=== PATIENT | female | born 1955 | race Caucasian/White ===

== ENCOUNTER 2016-04-22 10:56 | Outpatient (CLI) | payer MEDICARE, OTHER | END 2016-04-22 10:57 | disposition home or self-care (01) | DX: I25.10 Atherosclerotic heart disease of native coronary artery without angina pectoris (principal); D72.829 Elevated white blood cell count, unspecified; E03.9 Hypothyroidism, unspecified; E78.5 Hyperlipidemia, unspecified ==

== ENCOUNTER 2016-04-22 11:02 | Outpatient (CLI) | payer MEDICARE, OTHER | END 2016-04-22 11:03 | disposition home or self-care (01) | DX: Z12.31 Encounter for screening mammogram for malignant neoplasm of breast (principal) ==

== ENCOUNTER 2017-04-25 11:21 | Outpatient (CLI) | payer MEDICARE, OTHER ==
[2017-04-25 11:56] LABS: ALBUMIN 3.7 g/dL (3.2-5.5); ALBUMIN/GLOBULIN RATIO 1.1 (1.0-2.2); ALKALINE PHOSPHATASE 97 IU/L (42-121); ALT ALANINE AMINOTRANSFERASE 30 IU/L (10-60); AST ASPARTATE AMINOTRANSFERASE 23 IU/L (10-42); BILIRUBIN,TOTAL 0.3 mg/dL (0.2-1.0); BUN - BLOOD UREA NITROGEN 12 mg/dL (6-20); CALCIUM 8.3 mg/dL (8.5-10.3); CARBON DIOXIDE - CO2 23 mmol/L (21-32); CHLORIDE 100 mmol/L (101-111); CHOL/HDL RATIO 4.4 (<4.4); CHOLESTEROL 97 mg/dL; CREATININE 0.8 mg/dL (0.4-1.0); GFR - MDRD 73 (>89); GLUCOSE 121 mg/dL (70-100); HDL CHOLESTEROL 22 mg/dL; LDL CHOLESTEROL,CALCULATED 56 mg/dL; LDL/HDL RATIO 2.5 (<4.4); SODIUM 133 mmol/L (135-145); VLDL CHOLESTEROL 19 mg/dL
[2017-04-25 12:00] LABS: BASOPHILS % (AUTO) 0.6 %; EOSINOPHILS # (AUTO) 0.1 10^3/uL (0.0-0.7); EOSINOPHILS % (AUTO) 1.7 %; HGB - HEMOGLOBIN 13.7 g/dL (12.0-16.0); LYMPHOCYTES # (AUTO) 2.5 10^3/uL (1.5-3.5); LYMPHOCYTES % (AUTO) 42.9 %; MEAN CORPUSCULAR HEMOGLOBIN 30.6 pg (27.0-31.0); MEAN CORPUSCULAR HGB CONC 34.4 g/dL (32.0-36.0); MEAN CORPUSCULAR VOLUME 88.9 fL (81.0-99.0); MEAN PLATELET VOLUME 8.5 fL (7.9-10.8); MONOCYTES # (AUTO) 0.5 10^3/uL (0.0-1.0); MONOCYTES % (AUTO) 9.1 %; NEUTROPHILS # (AUTO) 2.6 10^3/uL (1.5-6.6); NEUTROPHILS % (AUTO) 45.7 %; PLT - PLATELET COUNT 183 10^3/uL (130-450); RED BLOOD COUNT 4.47 10^6/uL (4.20-5.40); WHITE BLOOD COUNT 5.8 x10^3/uL (4.8-10.8)
== END 2017-04-25 11:22 | disposition home or self-care (01) ==
LOC: LAB 11:21
PROVIDERS: ATTEND Nurse Practitioner Primary Care
DX: I25.10 Atherosclerotic heart disease of native coronary artery without angina pectoris (principal); E88.81 Metabolic syndrome and other insulin resistance; E03.9 Hypothyroidism, unspecified; E78.5 Hyperlipidemia, unspecified; Z79.899 Other long term (current) drug therapy
CPT/HCPCS: 36415; 80053; 80061; 83721; 84443; 85025

== ENCOUNTER 2017-06-07 08:00 | Outpatient (CLI) | payer MEDICARE | END 2017-06-07 23:59 | disposition home or self-care (01) | LOC: LAB.R 08:00 | PROVIDERS: ATTEND Surgery | DX: R19.5 Other fecal abnormalities (principal) | CPT/HCPCS: 82270 ==

== ENCOUNTER 2017-06-13 07:53 | Day surgery (SDC) | payer MEDICARE ==
[2017-06-13] MEDS ORDERED: LACTATED RINGERS 1,000 ML IV ONE (07:59)
[2017-06-13] MEDS ORDERED: BENZOCAINE/TETRACAINE/BUTAMBEN SPRAY 56 GM TOP ONE (09:29)
[2017-06-13] MEDS ORDERED: KETAMINE 500 MG/10 ML VIAL IVP ONE (09:40)
[2017-06-13] MEDS ORDERED: MIDAZOLAM 2 MG/2 ML VIAL IVP ONE (09:40)
[2017-06-13] MEDS ORDERED: GLYCOPYRROLATE 1 MG/5 ML VIAL IVP ONE (09:40)
[2017-06-13] MEDS ORDERED: PROPOFOL 200 MG/20 ML VIAL IVP ONE (09:40)
[2017-06-13 10:52] VITALS: BP 129/56
== END 2017-06-13 07:54 | disposition home or self-care (01) ==
LOC: SDS 07:53
PROVIDERS: ATTEND Surgery
PROC: 0DBM8ZX Excision of Descending Colon, Via Natural or Artificial Opening Endoscopic, Diagnostic (ICD-10-PCS; 2017-06-13)
PROC: 0DBL8ZX Excision of Transverse Colon, Via Natural or Artificial Opening Endoscopic, Diagnostic (ICD-10-PCS; 2017-06-13)
PROC: 0DBN8ZX Excision of Sigmoid Colon, Via Natural or Artificial Opening Endoscopic, Diagnostic (ICD-10-PCS; 2017-06-13)
PROC: 0DBP8ZX Excision of Rectum, Via Natural or Artificial Opening Endoscopic, Diagnostic (ICD-10-PCS; 2017-06-13)
PROC: 0DB48ZX Excision of Esophagogastric Junction, Via Natural or Artificial Opening Endoscopic, Diagnostic (ICD-10-PCS; principal; 2017-06-13 09:00)
PROC: 0DB78ZX Excision of Stomach, Pylorus, Via Natural or Artificial Opening Endoscopic, Diagnostic (ICD-10-PCS; 2017-06-13 09:00)
DX: R19.5 Other fecal abnormalities (principal); K29.70 Gastritis, unspecified, without bleeding; K22.10 Ulcer of esophagus without bleeding; D12.3 Benign neoplasm of transverse colon; D12.5 Benign neoplasm of sigmoid colon; K62.1 Rectal polyp; I10 Essential (primary) hypertension; I25.2 Old myocardial infarction; Z79.82 Long term (current) use of aspirin; E78.00 Pure hypercholesterolemia, unspecified; F17.210 Nicotine dependence, cigarettes, uncomplicated
CPT/HCPCS: 43239; 45384; A9270; J7120

== ENCOUNTER 2018-04-28 10:56 | Outpatient (CLI) | payer MEDICARE, OTHER ==
[2018-04-28 11:26] LABS: BASOPHILS # (AUTO) 0.1 10^3/uL (0.0-0.1); BASOPHILS % (AUTO) 0.8 %; EOSINOPHILS # (AUTO) 0.2 10^3/uL (0.0-0.7); EOSINOPHILS % (AUTO) 2.2 %; HGB - HEMOGLOBIN 14.4 g/dL (12.0-16.0); LYMPHOCYTES # (AUTO) 3.4 10^3/uL (1.5-3.5); LYMPHOCYTES % (AUTO) 30.1 %; MEAN CORPUSCULAR HEMOGLOBIN 30.3 pg (27.0-31.0); MEAN CORPUSCULAR HGB CONC 33.9 g/dL (32.0-36.0); MEAN CORPUSCULAR VOLUME 89.4 fL (81.0-99.0); MEAN PLATELET VOLUME 7.7 fL (7.9-10.8); MONOCYTES # (AUTO) 0.6 10^3/uL (0.0-1.0); MONOCYTES % (AUTO) 5.5 %; NEUTROPHILS % (AUTO) 61.4 %; PLT - PLATELET COUNT 262 10^3/uL (130-450); RED BLOOD COUNT 4.77 10^6/uL (4.20-5.40); RED CELL DISTRIBUTION WIDTH 14.4 % (12.0-15.0); WHITE BLOOD COUNT 11.4 x10^3/uL (4.8-10.8)
[2018-04-28 11:43] LABS: ALBUMIN 3.9 g/dL (3.2-5.5); ALBUMIN/GLOBULIN RATIO 1.1 (1.0-2.2); ALKALINE PHOSPHATASE 109 IU/L (42-121); ALT ALANINE AMINOTRANSFERASE 26 IU/L (10-60); AST ASPARTATE AMINOTRANSFERASE 17 IU/L (10-42); BILIRUBIN,TOTAL 0.4 mg/dL (0.2-1.0); BUN - BLOOD UREA NITROGEN 18 mg/dL (6-20); CALCIUM 9.1 mg/dL (8.5-10.3); CARBON DIOXIDE - CO2 26 mmol/L (21-32); CHLORIDE 103 mmol/L (101-111); CHOL/HDL RATIO 4.8 (<4.4); CHOLESTEROL 139 mg/dL; CREATININE 0.9 mg/dL (0.4-1.0); GFR - MDRD 63 (>89); GLUCOSE 127 mg/dL (70-100); HDL CHOLESTEROL 29 mg/dL; LDL CHOLESTEROL,CALCULATED 66 mg/dL; LDL/HDL RATIO 2.3 (<4.4); SODIUM 138 mmol/L (135-145); TOTAL PROTEIN 7.3 g/dL (6.7-8.2); VLDL CHOLESTEROL 44 mg/dL
[2018-04-28 11:52] LABS: HB2 TOTAL 15.4 g/dL; HEMOGLOBIN A1C 0.67 g/dL; HEMOGLOBIN A1C % 6.1 % (4.6-6.2)
== END 2018-04-28 10:57 | disposition home or self-care (01) ==
LOC: LAB 10:56
PROVIDERS: ATTEND Nurse Practitioner Primary Care
DX: E88.81 Metabolic syndrome and other insulin resistance (principal); Z79.899 Other long term (current) drug therapy; I25.10 Atherosclerotic heart disease of native coronary artery without angina pectoris; E03.9 Hypothyroidism, unspecified; E78.5 Hyperlipidemia, unspecified
CPT/HCPCS: 36415; 80053; 80061; 83036; 83721; 84443; 85025

== ENCOUNTER 2018-07-07 08:56 | Outpatient (CLI) | payer MEDICARE, OTHER ==
[2018-07-07 09:18] LABS: CALCIUM 8.8 mg/dL (8.5-10.3); CREATININE 0.9 mg/dL (0.4-1.0)
[2018-07-07 09:30] LABS: HB2 TOTAL 15.6 g/dL; HEMOGLOBIN A1C 0.7 g/dL; HEMOGLOBIN A1C % 6.3 % (4.6-6.2)
--- NOTE | 2018-07-07 12:48 | CT Report ---
Reason: PERSONAL HISTORY OF NICOTINE DEPENDENCE Procedure Date: 07/07/2018 Accession Number: [id number] / [id number] Procedure: CT - Low Dose Lung Cancer Screen CPT Code: FULL RESULT: EXAM CT LUNG SCREEN EXAM DATE: 07/07/2018 09:22 AM. HISTORY: 63-year-old patient with [id number] smoking history. Currently smoking: Yes. COMPARISON: None. TECHNIQUE: CT examination of the entire thorax without contrast was performed using low-dose technique. Thin section coronal, axial, sagittal and MIP axial images were obtained. In accordance with CT protocol optimization, one or more of the following dose reduction techniques were utilized for this exam: automated exposure control, adjustment of mA and/or KV based on patient size, or use of iterative reconstructive technique. FINDINGS: Nodules: Right upper lobe: 5 mm semisolid nodule 31/4; 4 mm semisolid nodule 35/4; 4 mm semisolid nodule 45/4; 5 mm semisolid nodule 47/4; 6 mm solid nodule 49/4; 5 mm semisolid nodule 57/4; 5 mm solid nodule anterior and 4 mm semisolid nodule lateral 65/4. Right middle lobe: None. Right lower lobe: 4 mm semisolid nodule 77/4; 5 mm solid nodule 106/4. Left upper lobe: 3 mm semisolid nodule 46/4; 4 mm semisolid nodule anterior and 4 mm semisolid nodule anterolateral 58/4; 5 mm semisolid nodule 80/4. Left lower lobe: 4 mm semisolid nodule 73/4; 4 mm semisolid nodule 79/4. Emphysema: Biapical and upper lung paraseptal emphysema. Pleura: Unremarkable. Aorta: Unremarkable. Mediastinum: Unremarkable. Coronary calcifications: Mild coronary artery calcifications in the right coronary artery. Other pulmonary findings: There is upper lobe predominance of mosaic pattern to the background density with geographic areas of associated tiny cystic airspaces within the parenchyma somewhat resembling fine honeycomb fibrosis. Other extrapulmonary findings: None. IMPRESSION: 1. Lung-RADS ASSESSMENT CATEGORY: 3 - probably benign Probability of malignancy: 1-2% 2. Upper lobe predominance of mosaic pattern and geographic areas of fibrosis resembling fine honeycomb type. Consider correlation with dedicated high-resolution CT. RECOMMENDATION: Recommended follow up based on Lung-RADS guidelines. [facility]IA
--- NOTE | 2018-07-07 17:18 | DEXA Report ---
Reason: POSTMENOPAUSAL Procedure Date: 07/07/2018 Accession Number: [id number] / [id number] Procedure: DEX - Dexa Spine and/or Hip CPT Code: FULL RESULT: EXAM: Dexa Spine and/or Hip DATE: 07/07/2018 10:11 AM CLINICAL HISTORY: POSTMENOPAUSAL TECHNIQUE: Dual energy x-ray absorptiometry (DXA) was performed on a [employer] System. Regions measured are the AP Spine, femoral neck, and if needed forearm. COMPARISON: None. In accordance with the International Society for Clinical Densitometry (ISCD) guidelines, data from previous exams may be reanalyzed using current recommendations and techniques. This is done to allow a more accurate basis for comparison with the current study. FINDINGS: The data for the lumbar spine is as follows: BMD (g/cm/cm) T-SCORE Z-SCORE REGION L1 0.863 -2.2 -1.3 L2 0.900 -2.5 -1.5 L3 0.931 -2.2 -1.3 L4 0.856 -2.9 -1.9 TOTAL 0.887 -2.4 -1.5 NOTE: All evaluable vertebrae are used for classification The data for the hip is as follows: BMD (g/cm/cm) T-SCORE Z-SCORE REGION Neck 1.036 0.0 1.1 TOTAL 1.001 0.0 0.7 NOTE: The femoral neck or total proximal femur, whichever is lowest, is used for classification. IMPRESSION: THE WHO CLASSIFICATION BASED ON THE INTERNATIONAL REFERENCE STANDARD IS OSTEOPENIA. THE FRACTURE RISK IS INCREASED. RECOMMENDATION: Patients with diagnosis of osteoporosis or osteopenia should have regular bone mineral density assessment. For those eligible for Medicare, routine testing is allowed once every 2 years. Testing frequency can be increased for patients who have rapidly progressing disease or for those who are receiving medical therapy to restore bone mass. COMMENT: World Health Organization (WHO) definitions for osteoporosis and osteopenia: NORMAL BMD: T-score at -1.0 or higher, fracture risk is low OSTEOPENIA BMD: T-score between -1.0 and -2.5, fracture risk is increased. OSTEOPOROSIS BMD: T-score at -2.5 or lower, fracture risk is high. National Osteoporosis Foundation recommends: 1. Obtain adequate dietary calcium (at least 1200 mg per day) and vitamin D (400-800 international units per day). 2. Participate, as appropriate, in regular weightbearing and muscle-strengthening exercise. 3. Avoid tobacco use and reduce alcohol and caffeine intake. 4. For more detailed information see the website at www.NOF.org.
[2018-07-08 14:36] LABS: HEPATITIS C ANTIBODY NON-REACTIVE (NON-REACTIVE)
== END 2018-07-07 08:57 | disposition home or self-care (01) ==
LOC: LAB 08:56
PROVIDERS: ATTEND Family Medicine
DX: Z00.00 Encounter for general adult medical examination without abnormal findings (principal); Z12.2 Encounter for screening for malignant neoplasm of respiratory organs; F17.210 Nicotine dependence, cigarettes, uncomplicated; R91.8 Other nonspecific abnormal finding of lung field; M85.88 Other specified disorders of bone density and structure, other site; Z78.0 Asymptomatic menopausal state; E88.81 Metabolic syndrome and other insulin resistance; R73.9 Hyperglycemia, unspecified
CPT/HCPCS: 36415; 77080; 80048; 83036; 86803; G0297

== ENCOUNTER 2018-07-07 09:09 | Outpatient (CLI) | payer MEDICARE, OTHER ==
--- NOTE | 2018-07-07 16:58 | Mammography Report ---
Reason: MAMMOGRAPHIC SCREENING FOR BREAST CANCER Procedure Date: 07/07/2018 Accession Number: [id number] / [id number] Procedure: [facility] - Screening Mammo w/Jalen CPT Code: FULL RESULT: EXAM: Screening Mammo w/Jalen DATE: 07/07/2018 9:59 AM CLINICAL HISTORY: Routine screening. No reported personal or family history of breast cancer. TECHNIQUE: (B) - Bilateral Bilateral CC and MLO views were obtained. COMPARISON: 04/22/2016 through 12/08/2013 PARENCHYMAL PATTERN: (A) - The breasts demonstrate scattered fibroglandular densities bilaterally. FINDINGS: Bilateral breasts: There are no suspicious masses, calcifications, or areas of distortion. IMPRESSION: Negative examination. BI-RADS category1 RECOMMENDATION: (ANNUAL) - Recommend routine annual screening mammography. BI-RADS CATEGORY: (1) - Negative STANDARD QUALIFYING STATEMENTS: 1. This examination was not reviewed with the aid of Computer-Aided Detection (CAD). 2. A negative or benign imaging report should not preclude biopsy if clinically suspicious findings are present. 3. Dense breasts may obscure an underlying neoplasm. 4. This examination was reviewed with the aid of 3D breast imaging (tomosynthesis).
== END 2018-07-07 09:10 | disposition home or self-care (01) ==
LOC: DI 09:09
PROVIDERS: ATTEND Family Medicine
DX: Z12.31 Encounter for screening mammogram for malignant neoplasm of breast (principal)
CPT/HCPCS: 77063; 77067

== ENCOUNTER 2018-07-21 08:46 | Outpatient (CLI) | payer MEDICARE, OTHER ==
--- NOTE | 2018-07-21 09:44 | CT Report ---
Reason: ABNORMAL CHEST CT SCAN Procedure Date: 07/21/2018 Accession Number: [id number] / [id number] Procedure: CT - CHEST WO CPT Code: FULL RESULT: EXAM: CT CHEST EXAM DATE: 07/21/2018 09:02 AM. CLINICAL HISTORY: Abnormal low dose screening CT chest exam. COMPARISONS: CHEST SCREEN LOW DOSE W/O 07/07/2018 9:23 AM. TECHNIQUE: Routine helical CT imaging was performed through the chest. IV contrast: None. Reconstructions: Coronal and sagittal. In accordance with CT protocol optimization, one or more of the following dose reduction techniques were utilized for this exam: automated exposure control, adjustment of mA and/or KV based on patient size, or use of iterative reconstructive technique. FINDINGS: Mild bilaterally symmetric interstitial lung disease primarily involving both upper lung zones. The recently described tiny pulmonary nodules are not redemonstrated. No significant bronchiectasis or pleural thickening. Mediastinum: No mediastinal or hilar mass. Normal cardiac size. There is age-appropriate coronary artery calcification. Bones: Unremarkable. Visualized Abdomen: Unremarkable. Other: None. IMPRESSION: 1. Mild bilaterally symmetric interstitial lung disease primarily involving both upper lung zones. 2. No suspicious mass or adenopathy. RADIA
== END 2018-07-21 08:47 | disposition home or self-care (01) ==
LOC: DI 08:46
PROVIDERS: ATTEND Family Medicine
DX: J84.9 Interstitial pulmonary disease, unspecified (principal)
CPT/HCPCS: 71250

== ENCOUNTER 2019-07-06 11:34 | Outpatient (CLI) | payer MEDICARE, OTHER ==
[2019-07-06 11:59] LABS: CALCIUM 9.3 mg/dL (8.5-10.3); CREATININE 0.8 mg/dL (0.4-1.0)
== END 2019-07-06 11:35 | disposition home or self-care (01) ==
LOC: LAB 11:34
PROVIDERS: ATTEND Nurse Practitioner
DX: R00.2 Palpitations (principal); R94.31 Abnormal electrocardiogram [ECG] [EKG]
CPT/HCPCS: 36415; 80048; 83735

== ENCOUNTER 2019-08-24 08:00 | Outpatient (CLI) | payer MEDICARE, OTHER ==
[2019-08-24 17:50] LABS: BASOPHILS # (AUTO) 0.1 10^3/uL (0.0-0.1); BASOPHILS % (AUTO) 0.5 %; EOSINOPHILS # (AUTO) 0.1 10^3/uL (0.0-0.7); EOSINOPHILS % (AUTO) 0.5 %; HGB - HEMOGLOBIN 14.5 g/dL (12.0-16.0); LYMPHOCYTES # (AUTO) 2.8 10^3/uL (1.5-3.5); LYMPHOCYTES % (AUTO) 28.3 %; MEAN CORPUSCULAR HEMOGLOBIN 30.3 pg (27.0-31.0); MEAN CORPUSCULAR HGB CONC 32.2 g/dL (32.0-36.0); MEAN CORPUSCULAR VOLUME 93.9 fL (81.0-99.0); MEAN PLATELET VOLUME 10.8 fL (7.9-10.8); MONOCYTES # (AUTO) 0.4 10^3/uL (0.0-1.0); MONOCYTES % (AUTO) 4.3 %; NEUTROPHILS # (AUTO) 6.5 10^3/uL (1.5-6.6); PLT - PLATELET COUNT 274 10^3/uL (130-450); RED BLOOD COUNT 4.79 10^6/uL (4.20-5.40); RED CELL DISTRIBUTION WIDTH 14.5 % (12.0-15.0); WHITE BLOOD COUNT 9.8 x10^3/uL (4.8-10.8)
[2019-08-24 18:07] LABS: HB2 TOTAL 14.9 g/dL; HEMOGLOBIN A1C 0.65 g/dL; HEMOGLOBIN A1C % 6.1 % (4.6-6.2)
[2019-08-24 18:12] LABS: ALBUMIN 3.9 g/dL (3.2-5.5); ALBUMIN/GLOBULIN RATIO 1.3 (1.0-2.2); ALKALINE PHOSPHATASE 96 IU/L (42-121); ALT ALANINE AMINOTRANSFERASE 25 IU/L (10-60); AST ASPARTATE AMINOTRANSFERASE 18 IU/L (10-42); BILIRUBIN,TOTAL 0.6 mg/dL (0.2-1.0); BUN - BLOOD UREA NITROGEN 14 mg/dL (6-20); CALCIUM 9.1 mg/dL (8.5-10.3); CARBON DIOXIDE - CO2 26 mmol/L (21-32); CHLORIDE 103 mmol/L (101-111); CHOL/HDL RATIO 3.6 (<4.4); CHOLESTEROL 124 mg/dL; CREATININE 0.8 mg/dL (0.4-1.0); GLUCOSE 107 mg/dL (70-100); HDL CHOLESTEROL 34 mg/dL; LDL CHOLESTEROL,CALCULATED 62 mg/dL; LDL/HDL RATIO 1.8 (<4.4); SODIUM 139 mmol/L (135-145); TOTAL PROTEIN 6.9 g/dL (6.7-8.2); VLDL CHOLESTEROL 28 mg/dL
== END 2019-08-24 23:59 | disposition home or self-care (01) ==
LOC: LAB.WCP 08:00
PROVIDERS: ATTEND Nurse Practitioner
DX: R73.9 Hyperglycemia, unspecified (principal); Z79.899 Other long term (current) drug therapy; I34.0 Nonrheumatic mitral (valve) insufficiency; E78.5 Hyperlipidemia, unspecified; E03.9 Hypothyroidism, unspecified; E88.81 Metabolic syndrome and other insulin resistance
CPT/HCPCS: 36415; 80053; 80061; 83036; 83721; 84443; 85025

== ENCOUNTER 2019-09-30 11:34 | Outpatient (CLI) | payer MEDICARE, OTHER ==
--- NOTE | 2019-09-30 16:45 | CT Report ---
PROCEDURE: CHEST WO INDICATIONS: OTH NONSPECIFIC ABN FINDING OF LUNG FLUID TECHNIQUE: Noncontrast 5 mm thick sections acquired from the pulmonary apices to the posterior costophrenic angl es. 7 mm thick coronal and sagittal MIP reformats were then acquired. For radiation dose reduction, the following was used: automated exposure control, adjustment of mA and/or kV according to patient size. COMPARISON: Chest CT examination dated 07.21.18 FINDINGS: Image quality: Excellent. Lungs and pleura: No acute air space opacities. There is no change in moderate bilateral mid and upp er lung predominant interstitial pulmonary opacity. There multiple small cystic lucencies with bilate ral mid and upper lung predominance. No focal airspace opacity. No pleural effusions or pneumothorax. Central and peripheral airways are patent and normal in caliber. Mediastinum: Heart size is normal. There is calcification of the coronary vasculature. No pericardia l effusion. No mediastinal adenopathy by size criteria. Thoracic aorta and central pulmonary arteri es are normal in size. Esophagus is normal in caliber. No hiatal hernia. Bones and chest wall: No suspicious bony lesions. No vertebral body compression fractures. No axil juwan or supraclavicular adenopathy by size criteria. The thyroid is normal in size. Abdomen: Visualized upper abdominal solid organs and bowel loops appear normal in the absence of con trast. IMPRESSION: 1. No significant change in interstitial lung disease. 2. No acute process. 3. Coronary artery disease. Reviewed by: Watson Chavez MD on 09/30/2019 4:43 PM PDT Approved by: Watson Chavez MD on 09/30/2019 4:43 PM PDT Station ID: [id number]
== END 2019-09-30 11:35 | disposition home or self-care (01) ==
LOC: DI 11:34
PROVIDERS: ATTEND Nurse Practitioner
DX: J84.9 Interstitial pulmonary disease, unspecified (principal); I25.10 Atherosclerotic heart disease of native coronary artery without angina pectoris
CPT/HCPCS: 71250

== ENCOUNTER 2020-02-25 11:35 | Outpatient (CLI) | payer MEDICARE, OTHER ==
--- NOTE | 2020-02-25 12:22 | XRAY Report ---
PROCEDURE: Knee 3 View RT INDICATIONS: KNEE JOINT PAIN, RT TECHNIQUE: 3 views of the right knee(s) were acquired. COMPARISON: None. FINDINGS: Bones: No fractures or dislocations. No suspicious bony lesions. Soft tissues: No joint effusion. No suspicious soft tissue calcifications. IMPRESSION: Normal right knee Reviewed by: Jose M Neville on 02/25/2020 12:21 PM [facility] Approved by: Jose M Neville on 02/25/2020 12:21 PM [facility] Station ID: [id number]
== END 2020-02-25 11:36 | disposition home or self-care (01) ==
LOC: DI 11:35
PROVIDERS: ATTEND Family Medicine
DX: M25.561 Pain in right knee (principal)

== ENCOUNTER 2020-11-09 11:12 | Outpatient (CLI) | payer MEDICARE, OTHER ==
[2020-11-09 11:38] LABS: BASOPHILS % (AUTO) 0.4 %; EOSINOPHILS # (AUTO) 0.2 10^3/uL (0.0-0.7); EOSINOPHILS % (AUTO) 1.6 %; HCT - HEMATOCRIT 42.8 % (37.0-47.0); HGB - HEMOGLOBIN 14.2 g/dL (12.0-16.0); LYMPHOCYTES # (AUTO) 2.7 10^3/uL (1.5-3.5); MEAN CORPUSCULAR HEMOGLOBIN 30.1 pg (27.0-31.0); MEAN CORPUSCULAR HGB CONC 33.2 g/dL (32.0-36.0); MEAN CORPUSCULAR VOLUME 90.7 fL (81.0-99.0); MEAN PLATELET VOLUME 9.5 fL (7.9-10.8); MONOCYTES # (AUTO) 0.6 10^3/uL (0.0-1.0); MONOCYTES % (AUTO) 6.3 %; NEUTROPHILS # (AUTO) 5.9 10^3/uL (1.5-6.6); NEUTROPHILS % (AUTO) 62.3 %; PLT - PLATELET COUNT 262 10^3/uL (130-450); RED BLOOD COUNT 4.72 10^6/uL (4.20-5.40); RED CELL DISTRIBUTION WIDTH 14.1 % (12.0-15.0); WHITE BLOOD COUNT 9.4 x10^3/uL (4.8-10.8)
[2020-11-09 12:04] LABS: ALBUMIN 3.9 g/dL (3.2-5.5); ALBUMIN/GLOBULIN RATIO 1.3 (1.0-2.2); ALKALINE PHOSPHATASE 123 IU/L (42-121); ALT ALANINE AMINOTRANSFERASE 34 IU/L (10-60); AST ASPARTATE AMINOTRANSFERASE 19 IU/L (10-42); BILIRUBIN,TOTAL 0.5 mg/dL (0.2-1.0); BUN - BLOOD UREA NITROGEN 19 mg/dL (6-20); CARBON DIOXIDE - CO2 25 mmol/L (21-32); CHLORIDE 101 mmol/L (101-111); CHOL/HDL RATIO 4.2 (<4.4); CHOLESTEROL 133 mg/dL; CREATININE 0.7 mg/dL (0.4-1.0); GFR - MDRD 84 (>89); GLUCOSE 140 mg/dL (70-100); HDL CHOLESTEROL 32 mg/dL; LDL CHOLESTEROL,CALCULATED 65 mg/dL; POTASSIUM 4.3 mmol/L (3.5-5.0); SODIUM 136 mmol/L (135-145); TRIGLYCERIDES 178 mg/dL; VLDL CHOLESTEROL 36 mg/dL
[2020-11-09 12:14] LABS: THYROID STIMULATING HORMONE 2.74 uIU/mL (0.34-5.60)
[2020-11-09 12:30] LABS: ESTIMATED AVERAGE GLUCOSE 148 mg/dL (70-100); HEMOGLOBIN A1c% 6.8 % (4.27-6.07)
== END 2020-11-09 11:13 | disposition home or self-care (01) ==
LOC: LAB 11:12
PROVIDERS: ATTEND Family Medicine
DX: R73.9 Hyperglycemia, unspecified (principal); Z79.899 Other long term (current) drug therapy
CPT/HCPCS: 36415; 80053; 80061; 83036; 83721; 84443; 85025

== ENCOUNTER 2021-01-11 15:00 | Outpatient (CLI) | payer MEDICARE, OTHER ==
--- NOTE | 2021-01-11 17:09 | DEXA Report ---
PROCEDURE: Dexa Spine and/or Hip INDICATIONS: OSTEOPENIA TECHNIQUE: Dual energy x-ray absorptiometry (DXA) was performed on a [employer] System. Regions measur ed are the AP Spine, femoral neck, and if needed forearm. COMPARISON: 07/07/2018. FINDINGS: Lumbar Spine: Bone Mineral Density 0.945 g/cm/cm,T score -2.0, osteopenia Left Hip: Bone Mineral Density 0.973 g/cm/cm,T score by 0.3, normal Left Femoral Neck: Bone Mineral Density 0.974 g/cm/cm, T score -0.5, normal (T score greater or equal to -1.0: NORMAL) (T score from -1.1 to -2.4: OSTEOPENIA) (T score less than or equal to -2.5 to: OSTEOPOROSIS) Impression: Osteopenia. Bone mineral density has decreased 2.8% in the interval since prior exam obta ined 07/07/2018. Patients with diagnosis of osteoporosis or osteopenia should have regular bone mineral density assess ment. For those eligible for Medicare, routine testing is allowed once every 2 years. Testing frequ ency can be increased for patients who have rapidly progressing disease or for those who are receivin g medical therapy to restore bone mass. Reviewed by: Meghana Mera MD, PhD on 01/11/2021 5:08 PM PDT Approved by: Meghana Mera MD, PhD on 01/11/2021 5:08 PM PDT Station ID: [id number]
== END 2021-01-11 15:01 | disposition home or self-care (01) ==
LOC: DI 15:00
PROVIDERS: ATTEND Family Medicine
DX: M85.88 Other specified disorders of bone density and structure, other site (principal)

== ENCOUNTER 2021-01-11 15:16 | Outpatient (CLI) | payer MEDICARE, OTHER ==
--- NOTE | 2021-01-11 16:59 | CT Report ---
PROCEDURE: Low Dose Lung Cancer Screen INDICATIONS: TOBACCO USE,CIGARETTE SMOKER TECHNIQUE: Noncontrast low-dose images were acquired from the pulmonary apices to the posterior costophrenic ang les. Multiplanar MIP reformats were then acquired. For radiation dose reduction, the following was used: automated exposure control, adjustment of mA and/or kV according to patient size. COMPARISON: CT chest without contrast dated 09/30/2019 no suspicious pulmonary nodules. No pleural fl uid. No airspace consolidation. FINDINGS: Image quality: Excellent. Lungs and pleura: Biapical predominance pulmonary fibrosis with some honeycombing present. There is also likely a degree of centrilobular emphysema. Subtle groundglass opacities suggest an acute inflam matory component. Findings are not significantly changed from the previous study. Mediastinum: Heart size is normal. No pericardial effusion. Mild coronary artery calcifications. N o mediastinal adenopathy by size criteria. Thoracic aorta and central pulmonary arteries are normal in size. Esophagus is normal in caliber. No hiatal hernia. Bones and chest wall: No suspicious bony lesions. No vertebral body compression fractures. No axil juwan or supraclavicular adenopathy by size criteria. Thyroid is poorly visualized, grossly unremarka ble. Abdomen: Visualized upper abdomen solid organs and bowel loops appear normal in the absence of contr ast. IMPRESSION: 1. LungRads category 1: Negative. No nodules and/or definitely benign nodules. 2. Annual low-dose noncontrast CT of the chest is recommended for lung cancer screening. 3. Clinically significant or potentially clinically significant findings (nonlung cancer): Pulmonary interstitial fibrosis, probable centrilobular emphysema, coronary artery disease. CLINICAL RECOMMENDATION STATEMENTS: In patients <35 years with an ITN detected on CT, MRI, or extrathyroidal ultrasound, the Committee re commends further evaluation with dedicated thyroid ultrasound if the nodule is "e1 cm and has no susp icious imaging features, and if the patient has normal life expectancy. In patients "e35 years with an ITN detected on CT, MRI, or extrathyroidal ultrasound, the Committee r ecommends further evaluation with dedicated thyroid ultrasound if the nodule is "e1.5 cm and has no s uspicious imaging features, and if the patient has normal life expectancy. (ACR, 2014) Reviewed by: Alex Pierce MD on 01/11/2021 4:58 PM PDT Approved by: Alex Pierce MD on 01/11/2021 4:58 PM PDT Station ID: [id number]
== END 2021-01-11 15:17 | disposition home or self-care (01) ==
LOC: DI 15:16
PROVIDERS: ATTEND Family Medicine
DX: Z12.2 Encounter for screening for malignant neoplasm of respiratory organs (principal); F17.210 Nicotine dependence, cigarettes, uncomplicated; J84.10 Pulmonary fibrosis, unspecified; I25.10 Atherosclerotic heart disease of native coronary artery without angina pectoris; M85.88 Other specified disorders of bone density and structure, other site

== ENCOUNTER 2021-05-30 14:13 | Outpatient (CLI) | payer MEDICARE, OTHER ==
[2021-05-30 14:44] LABS: BASOPHILS % (AUTO) 0.3 %; EOSINOPHILS # (AUTO) 0.1 10^3/uL (0.0-0.7); HCT - HEMATOCRIT 43.9 % (37.0-47.0); HGB - HEMOGLOBIN 14.3 g/dL (12.0-16.0); LYMPHOCYTES # (AUTO) 2.5 10^3/uL (1.5-3.5); LYMPHOCYTES % (AUTO) 26.2 %; MEAN CORPUSCULAR HEMOGLOBIN 29.5 pg (27.0-31.0); MEAN CORPUSCULAR HGB CONC 32.6 g/dL (32.0-36.0); MEAN CORPUSCULAR VOLUME 90.5 fL (81.0-99.0); MEAN PLATELET VOLUME 9.6 fL (7.9-10.8); MONOCYTES # (AUTO) 0.6 10^3/uL (0.0-1.0); NEUTROPHILS # (AUTO) 6.4 10^3/uL (1.5-6.6); NEUTROPHILS % (AUTO) 66.1 %; PLT - PLATELET COUNT 272 10^3/uL (130-450); RED BLOOD COUNT 4.85 10^6/uL (4.20-5.40); RED CELL DISTRIBUTION WIDTH 13.9 % (12.0-15.0); WHITE BLOOD COUNT 9.7 x10^3/uL (4.8-10.8)
[2021-05-30 15:10] LABS: ALBUMIN 4.1 g/dL (3.2-5.5); ALBUMIN/GLOBULIN RATIO 1.4 (1.0-2.2); ALKALINE PHOSPHATASE 107 IU/L (42-121); ALT ALANINE AMINOTRANSFERASE 31 IU/L (10-60); AST ASPARTATE AMINOTRANSFERASE 20 IU/L (10-42); BILIRUBIN,TOTAL 0.7 mg/dL (0.2-1.0); BUN - BLOOD UREA NITROGEN 15 mg/dL (6-20); CALCIUM 9.1 mg/dL (8.5-10.3); CARBON DIOXIDE - CO2 26 mmol/L (21-32); CHLORIDE 100 mmol/L (101-111); CHOL/HDL RATIO 4.1 (<4.4); CHOLESTEROL 127 mg/dL; CREATININE 0.9 mg/dL (0.4-1.0); GFR - MDRD 63 (>89); GLUCOSE 125 mg/dL (70-100); HDL CHOLESTEROL 31 mg/dL; LDL CHOLESTEROL,CALCULATED 63 mg/dL; POTASSIUM 4.4 mmol/L (3.5-5.0); SODIUM 136 mmol/L (135-145); TOTAL PROTEIN 7.1 g/dL (6.7-8.2); TRIGLYCERIDES 165 mg/dL; VLDL CHOLESTEROL 33 mg/dL
[2021-05-30 20:56] LABS: ESTIMATED AVERAGE GLUCOSE 148 mg/dL (70-100); HEMOGLOBIN A1c% 6.8 % (4.27-6.07)
== END 2021-05-30 14:14 | disposition home or self-care (01) ==
LOC: LAB 14:13
PROVIDERS: ATTEND Family Medicine
DX: E11.9 Type 2 diabetes mellitus without complications (principal)
CPT/HCPCS: 36415; 80053; 80061; 83036; 83721; 85025

== ENCOUNTER 2021-06-12 07:57 | Day surgery (SDC) | payer MEDICARE, OTHER ==
[2021-06-12] MEDS ORDERED: LACTATED RINGERS 1,000 ML IV ONE (08:20)
--- NOTE | 2021-06-12 09:06 | ANESTHESIA ---
Pre-Anesthesia VS, & Labs - Diagnosis screening - Procedure colonoscopy Vital Signs: Temp Pulse Resp BP Pulse Ox 36.2 C L 86 12 137/91 H 95 06/12/21 08:20 06/12/21 08:20 06/12/21 08:20 06/12/21 08:20 06/12/21 08:20 Height: 5 ft 6 in Weight (kg): 81.5 kg Body Mass Index: 29.0 BMI Classification: Overweight - NPO >8 hours - Is Patient ?: No - Lab Results Current Lab Results: Laboratory Tests 06/12/21 08:34: POC Whole Bld Glucose 128 H Home Medications and Allergies Home Medications: Ambulatory Orders Aspirin [Aspirin EC] 81 mg PO DAILY 06/05/21 Melatonin/Pyridoxine [Melatonin 5 mg Tablet] 1 each PO QPM PRN 06/05/21 Levothyroxine [Synthroid] 100 mcg PO QDAC 04/06/13 Atorvastatin Calcium 80 mg PO DAILY 04/29/13 Cholecalciferol (Vitamin D3) [Vitamin D3] 5,000 unit PO DAILY 12/07/20 Lysine HCl [l-Lysine] 2,000 mg PO QPM 12/07/20 Metoprolol Succinate [Toprol Xl] 12.5 mg PO DAILY 12/07/20 Aspirin [Aspirin EC] 81 mg PO DAILY 06/05/21 Melatonin/Pyridoxine [Melatonin 5 mg Tablet] 1 each PO QPM PRN 06/05/21 Allergies/Adverse Reactions: Allergies Allergy/AdvReac Type Severity Reaction Status Date / Time oxycodone HCl * Allergy Severe Unknown Verified 06/09/14 19:44 [From Percocet] oxycodone terephthalate * Allergy Severe Unknown Verified 06/09/14 19:44 [From Percodan] acetaminophen Allergy Nausea Verified 06/13/17 08:09 [From Darvocet-N] amoxicillin Allergy Rash Verified 12/07/20 10:42 clarithromycin Allergy Rash Verified 12/07/20 10:42 clopidogrel [From Plavix] Allergy Unknown Verified 12/07/20 10:42 iodine Allergy Hives Verified 06/09/14 19:44 propoxyphene Allergy Nausea Verified 06/13/17 08:09 [From Darvocet-N] Sulfa (Sulfonamide Allergy Unknown Verified 06/09/14 19:44 Antibiotics) tramadol Allergy Nausea Verified 06/13/17 08:09 adhesive tape AdvReac Rash Verified 12/07/20 10:42 iv contrast Allergy Unknown Uncoded 12/07/20 10:42 Anes History & Medical History - Medical History Cardiovascular: reports: Hypertension, High cholesterol, Coronary artery disease, MS, Arrhythmia Pulmonary: reports: Emphysema Gastrointestinal: reports: GERD, Colon polyps Urinary: reports: None Musculoskeletal: reports: Osteoarthritis Endocrine/Autoimmune: reports: Type 2 diabetes, HyPOthyroidism Skin: reports: Eczema Smoking Status: Current every day smoker - Surgical History General: reports: Appendectomy, Colonoscopy, EGD Eyes Ears Nose Throat (EENT): reports: Tonsil/Adenoidectomy Cardiothoracic: reports: Coronary stent Gynecologic: reports: Hysterectomy, Oophrectomy Orthopedic: reports: Other Exam General: Alert, Oriented x3, Cooperative Dental: WNL Mouth Openin Fingerbreadth Neck Mobility: Normal Mallampati classification: II Thyromental Distance: 4-6 cm Respiratory: Rales Cardiovascular: Regular rate Abdomen: Normal bowel sounds Plan Anesthesia Type: Total IV Consent for Procedure(s) Verified and Reviewed: Yes Code Status: Attempt Resuscitation ASA classification: 3-Severe systemic disease Is this case an emergency?: No
[2021-06-12] MEDS ORDERED: PROPOFOL 500 MG/50 ML 500 MG/50 ML VIAL ONE (09:37)
[2021-06-12] MEDS ORDERED: LACTATED RINGERS 400 ML IV ONE (10:37)
[2021-06-12 10:52] VITALS: BP 104/43
== END 2021-06-12 07:58 | disposition home or self-care (01) ==
LOC: SDS 07:57
PROVIDERS: ATTEND Surgery
PROC: 0DBN8ZZ Excision of Sigmoid Colon, Via Natural or Artificial Opening Endoscopic (ICD-10-PCS; 2021-06-12)
PROC: 0DBH8ZZ Excision of Cecum, Via Natural or Artificial Opening Endoscopic (ICD-10-PCS; principal; 2021-06-12 09:30)
DX: Z12.11 Encounter for screening for malignant neoplasm of colon (principal); D12.0 Benign neoplasm of cecum; K63.5 Polyp of colon; K57.30 Diverticulosis of large intestine without perforation or abscess without bleeding; K64.8 Other hemorrhoids; F17.210 Nicotine dependence, cigarettes, uncomplicated; E11.9 Type 2 diabetes mellitus without complications; J43.9 Emphysema, unspecified; I34.0 Nonrheumatic mitral (valve) insufficiency; F41.9 Anxiety disorder, unspecified
CPT/HCPCS: 45380; J7120

== ENCOUNTER → 2022-03-20 | Outpatient (CLI) | payer MEDICARE, OTHER | END | disposition short-term general hospital (02) | LOC: EMS 20:52 | DX: R06.02 Shortness of breath (principal); R07.89 Other chest pain | CPT/HCPCS: A0425; A0427 ==

== ENCOUNTER 2022-05-09 15:10 | Outpatient (CLI) | payer MEDICARE, OTHER ==
[2022-05-09 19:05] LABS: BASOPHILS # (AUTO) 0.1 10^3/uL (0.0-0.1); BASOPHILS % (AUTO) 0.8 %; EOSINOPHILS # (AUTO) 0.2 10^3/uL (0.0-0.7); EOSINOPHILS % (AUTO) 2.1 %; HCT - HEMATOCRIT 46.6 % (37.0-47.0); HGB - HEMOGLOBIN 14.6 g/dL (12.0-16.0); LYMPHOCYTES # (AUTO) 3.1 10^3/uL (1.5-3.5); LYMPHOCYTES % (AUTO) 31.4 %; MEAN CORPUSCULAR HEMOGLOBIN 29.4 pg (27.0-31.0); MEAN CORPUSCULAR HGB CONC 31.3 g/dL (32.0-36.0); MEAN CORPUSCULAR VOLUME 93.8 fL (81.0-99.0); MONOCYTES # (AUTO) 0.6 10^3/uL (0.0-1.0); MONOCYTES % (AUTO) 6.5 %; NEUTROPHILS # (AUTO) 5.8 10^3/uL (1.5-6.6); NEUTROPHILS % (AUTO) 58.8 %; PLT - PLATELET COUNT 296 10^3/uL (130-450); RED BLOOD COUNT 4.97 10^6/uL (4.20-5.40); RED CELL DISTRIBUTION WIDTH 13.9 % (12.0-15.0); WHITE BLOOD COUNT 9.9 x10^3/uL (4.8-10.8)
[2022-05-09 19:16] LABS: ALBUMIN 3.9 g/dL (3.2-5.5); ALBUMIN/GLOBULIN RATIO 1.2 (1.0-2.2); ALKALINE PHOSPHATASE 110 IU/L (42-121); ALT ALANINE AMINOTRANSFERASE 30 IU/L (10-60); AST ASPARTATE AMINOTRANSFERASE 16 IU/L (10-42); BILIRUBIN,TOTAL 0.6 mg/dL (0.2-1.0); BUN - BLOOD UREA NITROGEN 19 mg/dL (6-20); CALCIUM 9.2 mg/dL (8.5-10.3); CARBON DIOXIDE - CO2 26 mmol/L (21-32); CHLORIDE 103 mmol/L (101-111); CHOL/HDL RATIO 4.6 (<4.4); CHOLESTEROL 155 mg/dL; CREATININE 0.9 mg/dL (0.4-1.0); GFR - MDRD 62 (>89); GLUCOSE 144 mg/dL (70-100); HDL CHOLESTEROL 34 mg/dL; LDL CHOLESTEROL,CALCULATED 73 mg/dL; LDL/HDL RATIO 2.1 (<4.4); POTASSIUM 4.7 mmol/L (3.5-5.0); SODIUM 138 mmol/L (135-145); TOTAL PROTEIN 7.2 g/dL (6.7-8.2); TRIGLYCERIDES 242 mg/dL; VLDL CHOLESTEROL 48 mg/dL
[2022-05-09 19:31] LABS: THYROID STIMULATING HORMONE 2.72 uIU/mL (0.34-5.60)
[2022-05-09 20:28] LABS: ESTIMATED AVERAGE GLUCOSE 160 mg/dL (70-100); HEMOGLOBIN A1c% 7.2 % (4.27-6.07)
== END 2022-05-09 15:11 | disposition home or self-care (01) ==
LOC: LAB.N 15:10
PROVIDERS: ATTEND Nurse Practitioner Family
DX: E11.9 Type 2 diabetes mellitus without complications (principal); E78.5 Hyperlipidemia, unspecified; E88.81 Metabolic syndrome and other insulin resistance; E03.9 Hypothyroidism, unspecified
CPT/HCPCS: 36415; 80053; 80061; 83036; 83721; 84443; 85025

== ENCOUNTER 2023-01-22 14:12 | Outpatient (CLI) | payer MEDICARE, OTHER | END 2023-01-22 14:13 | disposition critical access hospital (66) | LOC: EMS 14:12 | DX: M54.50 Low back pain, unspecified (principal); X50.0XXA Overexertion from strenuous movement or load, initial encounter; Y93.E9 Activity, other interior property and clothing maintenance; Y92.003 Bedroom of unspecified non-institutional (private) residence as the place of occurrence of the external cause | CPT/HCPCS: A0425; A0429 ==

== ENCOUNTER 2023-01-22 14:27 | Emergency (ER) | payer MEDICARE, OTHER ==
[2023-01-22] MEDS ORDERED: MORPHINE 2 MG/ML CARPUJECT IVP STA (15:38)
[2023-01-22] MEDS ORDERED: ONDANSETRON 4 MG/2 ML VIAL IVP STA ×2 (15:38→18:02)
[2023-01-22] MEDS ORDERED: LIDOCAINE PATCH 5% TOP STA (15:39)
--- NOTE | 2023-01-22 16:07 | ED Physician Documentation ---
PD HPI BACK PAIN - Stated complaint Stated Complaint: BACK PX - Chief complaint Chief Complaint: Back Pain - History obtained from History obtained from: Patient - Additional information Additional information: Patient is a 67-year-old female presenting for evaluation of low back pain that has been present for the past 2 weeks. Patient states that she was doing housework when her pain started. She has been using ibuprofen with some improvement and yesterday was feeling rather good until she reached for a roasting zheng and suddenly the pain worsened. She also reports having left lower quadrant abdominal pain for the past 4 days which she believes is unrelated. She has associated nausea but no vomiting. Denies diarrhea. Does not take a blood thinner. Has tried ibuprofen this morning without any improvement. No recent falls. Review of Systems Constitutional: denies: Fever Cardiac: denies: Chest pain / pressure Respiratory: denies: Dyspnea GI: reports: Abdominal Pain, Nausea. denies: Vomiting, Diarrhea : denies: Dysuria Musculoskeletal: reports: Back pain PD PAST MEDICAL HISTORY - Past Medical History Cardiovascular: Hypertension, High cholesterol, Coronary artery disease, [place], Arrhythmia Respiratory: Emphysema Endocrine/Autoimmune: Type 2 diabetes, HyPOthyroidism GI: GERD, Colon polyps : None HEENT: Chronic vision loss, Other Psych: None Musculoskeletal: Osteoarthritis Derm: Eczema - Past Surgical History Past Surgical History: Yes General: Appendectomy, Colonoscopy, EGD Ortho: Other /[employer]: Hysterectomy, Oophrectomy Cardiovascular: Coronary stent HEENT: Tonsil/Adenoidectomy - Present Medications Home Medications: Ambulatory Orders Medication Instructions Recorded Confirmed Levothyroxine [Synthroid] 100 mcg PO QDAC 04/06/13 06/05/21 Atorvastatin Calcium 80 mg PO DAILY 04/29/13 06/05/21 Cholecalciferol (Vitamin D3) 5,000 unit PO DAILY 12/07/20 06/05/21 [Vitamin D3] Lysine HCl [l-Lysine] 2,000 mg PO QPM 12/07/20 06/05/21 Metoprolol Succinate [Toprol Xl] 12.5 mg PO DAILY 12/07/20 06/12/21 Aspirin [Aspirin EC] 81 mg PO DAILY 06/05/21 06/05/21 Melatonin/Pyridoxine [Melatonin 5 1 each PO QPM PRN 06/05/21 06/05/21 mg Tablet] Cyclobenzaprine [Flexeril] 10 mg PO TID PRN #20 tablet 10/18/23 Ibuprofen [Motrin] 1 tablet PO Q8H PRN #20 tablet 01/22/23 Lidocaine Patch 5% [Lidoderm Patch] 1 patch TOP DAILY PRN #10 patch 01/22/23 Ondansetron Odt [Zofran] 4 mg TL Q6H PRN #10 tablet 01/22/23 - Allergies Allergies/Adverse Reactions: Allergies Allergy/AdvReac Type Severity Reaction Status Date / Time oxycodone HCl * Allergy Severe Unknown Verified 06/09/14 19:44 [From Percocet] oxycodone terephthalate * Allergy Severe Unknown Verified 06/09/14 19:44 [From Percodan] acetaminophen Allergy Nausea Verified 06/13/17 08:09 [From Darvocet-N] amoxicillin Allergy Rash Verified 12/07/20 10:42 clarithromycin Allergy Rash Verified 12/07/20 10:42 clopidogrel [From Plavix] Allergy Unknown Verified 12/07/20 10:42 iodine Allergy Hives Verified 06/09/14 19:44 propoxyphene Allergy Nausea Verified 06/13/17 08:09 [From Darvocet-N] Sulfa (Sulfonamide Allergy Unknown Verified 06/09/14 19:44 Antibiotics) tramadol Allergy Nausea Verified 06/13/17 08:09 adhesive tape AdvReac Rash Verified 12/07/20 10:42 iv contrast Allergy Unknown Uncoded 12/07/20 10:42 - Social History Does the pt smoke?: No Smoking Status: Current every day smoker Does the pt drink ETOH?: Yes Does the pt have substance abuse?: No - Immunizations Immunizations are current?: Yes - POLST Patient has POLST: No PD ED PE NORMAL - General General: Alert and oriented X 3, No acute distress, Well developed/nourished - HEENT HEENT: Atraumatic, Moist mucous membranes, Pharynx benign - Neck Neck: Supple, no meningeal sign - Cardiac Cardiac: RRR, No murmur - Respiratory Respiratory: No respiratory distress, Clear bilaterally - Abdomen Abdomen: Normal bowel sounds, Soft, Non distended, Other (Left lower quadrant tenderness to palpation) - Back Back: Other (Low lumbar tenderness and left flank tenderness) - Derm Derm: Warm and dry - Neuro Neuro: Normal speech Results - Vitals Vitals: Vital Signs - 24 hr 01/22/23 01/22/23 14:28 18:27 Temperature 36.2 C L Heart Rate 77 66 Respiratory 20 12 Rate Blood Pressure 115/53 L 155/63 H O2 Saturation 97 96 Oxygen O2 Source Room air - Labs Labs: Laboratory Tests 01/22/23 01/22/23 01/22/23 15:53 15:53 16:48 WBC 10.0 RBC 5.32 Hgb 15.3 Hct 47.4 H MCV 89.1 MCH 28.8 MCHC 32.3 RDW 13.8 Plt Count 249 MPV 10.3 Neut # (Auto) 6.9 H Lymph # (Auto) 2.4 Bowie # (Auto) 0.5 Eos # (Auto) 0.1 Baso # (Auto) 0.1 Absolute Nucleated RBC 0.00 Nucleated RBC % 0.0 Sodium 140 Potassium 4.3 Chloride 105 Carbon Dioxide 25 Anion Gap 10.0 BUN 21 H Creatinine 0.8 Estimated GFR (MDRD) 72 L Glucose 141 H Calcium 9.6 Total Bilirubin 0.5 AST 18 ALT 34 Alkaline Phosphatase 125 H Total Protein 7.0 Albumin 4.5 Globulin 2.5 Albumin/Globulin Ratio 1.8 Lipase 46 Urine Color YELLOW Urine Clarity CLEAR Urine pH 5.5 Ur Specific [place] 1.025 Urine Protein NEGATIVE Urine Glucose (UA) >=1000 H Urine Ketones TRACE Urine Occult Blood NEGATIVE Urine Nitrite NEGATIVE Urine Bilirubin NEGATIVE Urine Urobilinogen 0.2 (NORMAL) Ur Leukocyte Esterase NEGATIVE Ur Microscopic Review NOT INDICATED Urine Culture Comments NOT INDICATED PD Medical Decision Making - ED course Complexity details: reviewed results, re-evaluated patient, d/w patient, d/w family (sister) ED course: Patient is a 67-year-old female presenting for evaluation of left-sided back pain after doing housework a few weeks ago which was getting better up until yesterday when she reached for roasting zheng. She also reports having left lower quadrant pain for the last several days. No vomiting or diarrhea. No follow-up red flag signs or symptoms in regards to her back pain. No bowel or bladder incontinence or saddle anesthesia, no IV drug use, no blood thinner use. Labs including CBC, chemistries and urinalysis were obtained and reviewed and without significant findings. CT of the abdomen and pelvis was obtained and reviewed with no significant abnormalities. Pt received IV morphine with little relief. Also received IV dilaudid which helped pain but pt then also developed itchiness and feeling warm. Says she has felt this way with other meds before. No wheezing, SOA, hives. Given IV benadryl. Pt feeling drowsy with medications and nauseous. Additionally IV fluids and zofran ordered. Plan for discharge once feeling improved. Will hold on any further narcotics as patient appears to be quite sensitive to these medications. Pt in agreement for trial of lidocaine patches, ibuprofen and muscle relaxers for symptoms. Counseled on need for follow up and concerning symptoms to return for. Departure - Departure Disposition: Home, Self Care Clinical Impression: Lumbar strain, Left lower quadrant abdominal pain Condition: Stable Instructions: ED Abdominal Pain Female Non-Specific Abdominal Pain, ED Low Back Pain Injury Prescriptions: Cyclobenzaprine [Flexeril] 10 mg PO TID PRN #20 tablet PRN Reason: Spasms Lidocaine Patch 5% [Lidoderm Patch] 1 patch TOP DAILY PRN #10 patch PRN Reason: pain Ibuprofen [Motrin] 1 tablet PO Q8H PRN #20 tablet PRN Reason: PAIN &/OR FEVER Ondansetron Odt [Zofran] 4 mg TL Q6H PRN #10 tablet PRN Reason: Nausea / Vomiting Comments: You were evaluated for low back pain as well as abdominal pain. Your labs are reassuring and your urine shows no infection. Your CT scan does not reveal a cause for the pain. I have sent prescriptions to [facility] to help you with your symptoms including lidocaine patches and a muscle relaxer. Please use caution with any medications as you do have multiple allergies and sensitivities. I would recommend close follow-up with your primary care doctor. Return to the ER with any worsening symptoms. Discharge Date/Time: 01/22/23 19:55
[2023-01-22 16:11] LABS: BASOPHILS # (AUTO) 0.1 10^3/uL (0.0-0.1); BASOPHILS % (AUTO) 0.5 %; EOSINOPHILS # (AUTO) 0.1 10^3/uL (0.0-0.7); EOSINOPHILS % (AUTO) 0.7 %; HCT - HEMATOCRIT 47.4 % (37.0-47.0); HGB - HEMOGLOBIN 15.3 g/dL (12.0-16.0); LYMPHOCYTES # (AUTO) 2.4 10^3/uL (1.5-3.5); LYMPHOCYTES % (AUTO) 24.2 %; MEAN CORPUSCULAR HEMOGLOBIN 28.8 pg (27.0-31.0); MEAN CORPUSCULAR HGB CONC 32.3 g/dL (32.0-36.0); MEAN CORPUSCULAR VOLUME 89.1 fL (81.0-99.0); MEAN PLATELET VOLUME 10.3 fL (7.9-10.8); MONOCYTES # (AUTO) 0.5 10^3/uL (0.0-1.0); MONOCYTES % (AUTO) 4.7 %; NEUTROPHILS # (AUTO) 6.9 10^3/uL (1.5-6.6); NEUTROPHILS % (AUTO) 69.5 %; PLT - PLATELET COUNT 249 10^3/uL (130-450); RED BLOOD COUNT 5.32 10^6/uL (4.20-5.40); RED CELL DISTRIBUTION WIDTH 13.8 % (12.0-15.0)
[2023-01-22] MEDS ORDERED: HYDROmorphone 1 MG/ML CARPUJECT IVP STA (16:38)
[2023-01-22 16:45] LABS: ALBUMIN 4.5 g/dL (3.2-5.5); ALBUMIN/GLOBULIN RATIO 1.8 (1.0-2.2); BILIRUBIN,TOTAL 0.5 mg/dL (0.2-1.0); CALCIUM 9.6 mg/dL (8.5-10.3); CREATININE 0.8 mg/dL (0.6-1.3); POTASSIUM 4.3 mmol/L (3.5-4.5)
[2023-01-22 16:57] LABS: BILIRUBIN,URINE NEGATIVE (NEGATIVE); GLUCOSE, URINE (UA) >=1000 mg/dL (NEGATIVE); KETONES,URINE (UA) TRACE mg/dL (NEGATIVE); LEUKOCYTE ESTERASE, URINE NEGATIVE (NEGATIVE); NITRITE,URINE NEGATIVE (NEGATIVE); OCCULT BLOOD,URINE NEGATIVE (NEGATIVE); PH,URINE 5.5 PH (5.0-7.5); PROTEIN,URINE NEGATIVE (NEGATIVE); UROBILINOGEN,URINE 0.2 (NORMAL) E.U./dL (NORMAL)
[2023-01-22 16:58] LABS: CLARITY,URINE CLEAR (CLEAR)
[2023-01-22] MEDS ORDERED: diphenhydrAMINE INJ 50 MG/ML VIAL IVP STA (17:33)
--- NOTE | 2023-01-22 17:45 | CT Report ---
PROCEDURE: ABDOMEN/PELVIS WO INDICATIONS: LLQ tenderness TECHNIQUE: A CT scan of the abdomen and pelvis was performed without the use of intravenous contrast. Images we re recorded and evaluated at appropriate window settings. Reformats: coronal and sagittal. For radiat ion dose reduction, the following was used: automated exposure control, adjustment of mA and/or kV ac cording to patient size. COMPARISON: None. FINDINGS: Image quality: Excellent. Lung bases and heart: Coronary artery calcifications. No pleural effusion. Liver: Hepatic steatosis. Gallbladder and biliary tree: Gallbladder is within normal limits in size. Possible layering sludge. No biliary ductal dilatation. Spleen: No splenomegaly. Pancreas: No pancreatic ductal dilation. Adrenals: No adrenal nodule. Kidneys and ureters: No hydronephrosis. No kidney stones. Bowel and peritoneum: No bowel distension. No pathologic free fluid. A few colonic diverticuli. The a ppendix is not identified. Lymph nodes: No central or retroperitoneal adenopathy. Vessels: No infrarenal aortic aneurysm. Calcified atherosclerotic plaque. PELVIS Reproductive organs: Uterus is absent. Bladder: Compressed. No stone. Pelvic lymph nodes: No pelvic adenopathy by size criteria. Bones: No aggressive osseous abnormality. Other: No significant ventral or inguinal hernia. IMPRESSION: 1. No kidney stones. No hydronephrosis. 2. No diverticulitis. No free fluid. 3. Hepatic steatosis. Reviewed by: Curly Hidalgo MD on 01/22/2023 5:44 PM PDT Approved by: Curly Hidalgo MD on 01/22/2023 5:44 PM PDT Station ID: [id number]
[2023-01-22] MEDS ORDERED: SODIUM CHLORIDE 0.9% 1,000 ML IV STA (18:02)
[2023-01-22 18:31] VITALS: BP 155/63; O2SAT 96
[2023-01-22] MEDS ORDERED: METOCLOPRAMIDE 10 MG/2 ML VIAL IVP STA (18:42)
--- NOTE | 2023-01-22 19:24 | ED Physician Documentation ---
ED Addendum - Addendum Addendum: 01/22/23 19:[address] Wilder at 6 PM shift change. She was feeling bad after a dose of narcotics and got presyncopal with vagal symptoms but normal vital signs and a lot of nausea. I gave her some Zofran and observed her for a while and she was feeling much better. Disposition: Discharged home Condition: Stable
[2023-01-22] MEDS ORDERED: CYCLOBENZAPRINE 10 MG Prepack 2 PO PRN (19:39)
== END 2023-01-22 19:55 | disposition home or self-care (01) ==
LOC: EDUNIT# → ED 14:27
DX: S39.012A Strain of muscle, fascia and tendon of lower back, initial encounter (principal); X50.9XXA Other and unspecified overexertion or strenuous movements or postures, initial encounter; Y93.E9 Activity, other interior property and clothing maintenance; R10.32 Left lower quadrant pain; L29.9 Pruritus, unspecified; R44.8 Other symptoms and signs involving general sensations and perceptions; R11.0 Nausea; R55 Syncope and collapse; R40.0 Somnolence; T40.2X5A Adverse effect of other opioids, initial encounter; Y92.538 Other ambulatory health services establishments as the place of occurrence of the external cause; F17.200 Nicotine dependence, unspecified, uncomplicated; I25.2 Old myocardial infarction; E11.9 Type 2 diabetes mellitus without complications; E78.5 Hyperlipidemia, unspecified
CPT/HCPCS: 36415; 74176; 80053; 80061; 81003; 82043; 82570; 83036; 83690; 85025; 96374; 96375; 96376; 99284; 99285; A9270; J1170; J1200; J2765; 81001; 83721; 87086

== ENCOUNTER 2023-01-22 16:20 | Outpatient (CLI) | payer MEDICARE, OTHER ==
[2023-01-22 17:16] LABS: CREATININE,URINE 89.6 mg/dL; MICROALBUMIN,URINE < 0.7 mg/dL
[2023-01-22 17:17] LABS: CHOL/HDL RATIO 4.5 (<4.4); CHOLESTEROL 153 mg/dL; HDL CHOLESTEROL 34 mg/dL; LDL CHOLESTEROL,CALCULATED 70 mg/dL; LDL/HDL RATIO 2.1 (<4.4); TRIGLYCERIDES 247 mg/dL (48-352); VLDL CHOLESTEROL 49 mg/dL
[2023-01-22 20:19] LABS: ESTIMATED AVERAGE GLUCOSE 194 mg/dL (70-100); HEMOGLOBIN A1c% 8.4 % (4.27-6.07)
== END 2023-01-22 16:21 | disposition home or self-care (01) ==
LOC: LAB 16:20
PROVIDERS: ATTEND Nurse Practitioner Family
DX: I25.2 Old myocardial infarction (principal); E11.9 Type 2 diabetes mellitus without complications; E78.5 Hyperlipidemia, unspecified
CPT/HCPCS: 36415; 80053; 80061; 82043; 82570; 83036; 83721; 85025

== ENCOUNTER 2023-02-06 14:18 | Outpatient (CLI) | payer MEDICARE, OTHER ==
--- NOTE | 2023-02-06 19:20 | XRAY Report ---
PROCEDURE: Lumbar Spine Complete INDICATIONS: LOW BACK PAIN,UNSPECIFIED TECHNIQUE: 5 view(s) of the lumbar spine were acquired. COMPARISON: None. FINDINGS: Bones: Vertebral body height and alignment is maintained. No suspicious bony lesions. Oblique images unremarkable. Mild disc space narrowing and hypertrophic facet joints noted in the lower lumbar spin e. Soft tissues: Overlying bowel gas pattern is normal. Atherosclerotic calcification of the abdominal aorta without evidence of aneurysm. . IMPRESSION: Degenerative disc disease and arthropathy in the lower lumbar spine. Aortic atherosclero sis without aneurysm Reviewed by: Nacho Smith MD on 02/06/2023 6:18 PM STEPHEN Approved by: Nacho Smith MD on 02/06/2023 6:18 PM STEPHEN Station ID: [id number]
== END 2023-02-06 14:19 | disposition home or self-care (01) ==
LOC: DI 14:18
PROVIDERS: ATTEND Nurse Practitioner Family
DX: M47.816 Spondylosis without myelopathy or radiculopathy, lumbar region (principal); M51.36 Other intervertebral disc degeneration, lumbar region; I70.0 Atherosclerosis of aorta

== ENCOUNTER 2023-03-26 14:25 | Outpatient (CLI) | payer MEDICARE, OTHER ==
[2023-03-26 15:05] LABS: CALCIUM 9.6 mg/dL (8.5-10.3); CREATININE 0.8 mg/dL (0.6-1.3); POTASSIUM 4.1 mmol/L (3.5-4.5)
== END 2023-03-26 14:26 | disposition home or self-care (01) ==
LOC: LAB 14:25
PROVIDERS: ATTEND Nurse Practitioner Acute Care
DX: I10 Essential (primary) hypertension (principal)
CPT/HCPCS: 36415; 80048

== ENCOUNTER 2023-04-30 14:13 | Outpatient (CLI) | payer MEDICARE, OTHER ==
[2023-04-30 14:54] LABS: CALCIUM 9.2 mg/dL (8.5-10.3); CREATININE 0.9 mg/dL (0.6-1.3)
[2023-04-30 15:07] LABS: THYROID STIMULATING HORMONE 2.88 uIU/mL (0.34-5.60)
[2023-04-30 15:26] LABS: ESTIMATED AVERAGE GLUCOSE 186 mg/dL (70-100); HEMOGLOBIN A1c% 8.1 % (4.27-6.07)
== END 2023-04-30 14:14 | disposition home or self-care (01) ==
LOC: LAB 14:13
PROVIDERS: ATTEND Nurse Practitioner Family
DX: E11.9 Type 2 diabetes mellitus without complications (principal); E03.9 Hypothyroidism, unspecified
CPT/HCPCS: 36415; 80048; 83036; 84443

== ENCOUNTER 2023-07-15 12:21 | Outpatient (CLI) | payer MEDICARE, OTHER ==
[2023-07-15 12:52] LABS: CHOL/HDL RATIO 3.4 (<4.4); CHOLESTEROL 124 mg/dL; HDL CHOLESTEROL 36 mg/dL; LDL CHOLESTEROL,CALCULATED 51 mg/dL; LDL/HDL RATIO 1.4 (<4.4); TRIGLYCERIDES 187 mg/dL (48-352); VLDL CHOLESTEROL 37 mg/dL
== END 2023-07-15 12:22 | disposition home or self-care (01) ==
LOC: LAB 12:21
PROVIDERS: ATTEND Nurse Practitioner Acute Care
DX: E78.5 Hyperlipidemia, unspecified (principal)
CPT/HCPCS: 36415; 80061; 83721

== ENCOUNTER 2023-09-23 14:10 | Outpatient (CLI) | payer MEDICARE, OTHER ==
[2023-09-23 14:40] LABS: CALCIUM 9.6 mg/dL (8.5-10.3); CREATININE 0.9 mg/dL (0.6-1.3)
[2023-09-23 21:56] LABS: ESTIMATED AVERAGE GLUCOSE 146 mg/dL (70-100); HEMOGLOBIN A1c% 6.7 % (4.27-6.07)
== END 2023-09-23 14:11 | disposition home or self-care (01) ==
LOC: LAB 14:10
PROVIDERS: ATTEND Nurse Practitioner Family
DX: E11.9 Type 2 diabetes mellitus without complications (principal)
CPT/HCPCS: 36415; 80048; 83036

== ENCOUNTER 2023-12-30 13:06 | Outpatient (CLI) | payer MEDICARE, OTHER ==
[2023-12-30 18:07] LABS: BASOPHILS # (AUTO) 0.1 10^3/uL (0.0-0.1); BASOPHILS % (AUTO) 0.6 %; EOSINOPHILS # (AUTO) 0.2 10^3/uL (0.0-0.7); EOSINOPHILS % (AUTO) 2.5 %; HCT - HEMATOCRIT 48.1 % (37.0-47.0); HGB - HEMOGLOBIN 15.1 g/dL (12.0-16.0); LYMPHOCYTES # (AUTO) 3.2 10^3/uL (1.5-3.5); LYMPHOCYTES % (AUTO) 40.6 %; MEAN CORPUSCULAR HEMOGLOBIN 28.9 pg (27.0-31.0); MEAN CORPUSCULAR HGB CONC 31.4 g/dL (32.0-36.0); MEAN CORPUSCULAR VOLUME 92.1 fL (81.0-99.0); MEAN PLATELET VOLUME 10.9 fL (7.9-10.8); MONOCYTES # (AUTO) 0.5 10^3/uL (0.0-1.0); MONOCYTES % (AUTO) 6.5 %; NEUTROPHILS # (AUTO) 3.9 10^3/uL (1.5-6.6); NEUTROPHILS % (AUTO) 49.5 %; PLT - PLATELET COUNT 248 10^3/uL (130-450); RED BLOOD COUNT 5.22 10^6/uL (4.20-5.40); RED CELL DISTRIBUTION WIDTH 13.7 % (12.0-15.0)
[2023-12-30 18:32] LABS: BUN - BLOOD UREA NITROGEN 15 mg/dL (6-20); CALCIUM 9.4 mg/dL (8.5-10.3); CARBON DIOXIDE - CO2 28 mmol/L (21-32); CHLORIDE 104 mmol/L (101-111); CHOL/HDL RATIO 4.4 (<4.4); CHOLESTEROL 153 mg/dL; CREATININE 0.9 mg/dL (0.6-1.3); GFR - MDRD 62 (>89); GLUCOSE 183 mg/dL (74-104); HDL CHOLESTEROL 35 mg/dL; LDL CHOLESTEROL,CALCULATED 66 mg/dL; LDL/HDL RATIO 1.9 (<4.4); POTASSIUM 4.9 mmol/L (3.5-4.5); SODIUM 139 mmol/L (135-145); TRIGLYCERIDES 259 mg/dL; VLDL CHOLESTEROL 52 mg/dL
[2023-12-30 21:43] LABS: ESTIMATED AVERAGE GLUCOSE 192 mg/dL (70-100); HEMOGLOBIN A1c% 8.3 % (4.27-6.07)
== END 2023-12-30 13:07 | disposition home or self-care (01) ==
LOC: LAB.N 13:06
PROVIDERS: ATTEND Nurse Practitioner Family
DX: Z02.89 Encounter for other administrative examinations (principal); E78.5 Hyperlipidemia, unspecified; E11.9 Type 2 diabetes mellitus without complications; I25.10 Atherosclerotic heart disease of native coronary artery without angina pectoris; Z79.899 Other long term (current) drug therapy
CPT/HCPCS: 36415; 80048; 80061; 83036; 83721; 85025